=== PATIENT | male | born 1960 | race Caucasian/White ===

== ENCOUNTER 2024-02-27 07:59 | Day surgery (SDC) | payer BC ==
[2024-02-26 10:47] VITALS: BMI 22.8
[2024-02-27] MEDS ORDERED: Ondansetron PF 4 MG/2 ML Vial ONE (08:06)
[2024-02-27] MEDS ORDERED: Midazolam HCl 2 mg/2 ml Vial ONE (08:06)
[2024-02-27] MEDS ORDERED: Fentanyl 250 MCG/5 ML VIAL ONE (08:06)
[2024-02-27] MEDS ORDERED: PROPOFOL 40 ML ONE (08:06)
[2024-02-27] MEDS ORDERED: Dexamethasone 20 MG/5 ML VIAL ONE (08:06)
[2024-02-27] MEDS ORDERED: AFRIN NASAL MIST 15 ML BOT ONE (09:04)
[2024-02-27] MEDS ORDERED: Mupirocin 2% Ointment 22 GM Tube ONE (09:09)
[2024-02-27] MEDS ORDERED: Lidocaine 1% w/Epinephrine 1:200K 30 ML VIAL ONE (09:09)
[2024-02-27] MEDS ORDERED: Ferric Subsulfate 8 ML TOPICAL SOLN ONE (09:09)
[2024-02-27] MEDS ORDERED: methylPREDNISolone Acetate 40 mg/ml Vial ONE (09:42)
[2024-02-27] MEDS ORDERED: fentaNYL 50 mcg/mL 1 mL Vial ONE (10:47)
[2024-02-27] MEDS ORDERED: Hydrocodone-Acetamin 15 ML UDCUP ONE (11:24)
== END 2024-02-27 12:20 | disposition home or self-care (01) ==
LOC: CSHSDC 07:59
PROVIDERS: ATTEND Otolaryngology Plastic Surgery within the Head & Neck
PROC: 09TU8ZZ Resection of Right Ethmoid Sinus, Via Natural or Artificial Opening Endoscopic (ICD-10-PCS; principal; 2024-02-27)
PROC: 09TR8ZZ Resection of Left Maxillary Sinus, Via Natural or Artificial Opening Endoscopic (ICD-10-PCS; principal; 2024-02-27)
PROC: 0CTPXZZ Resection of Tonsils, External Approach (ICD-10-PCS; principal; 2024-02-27)
PROC: 09TQ8ZZ Resection of Right Maxillary Sinus, Via Natural or Artificial Opening Endoscopic (ICD-10-PCS; principal; 2024-02-27)
PROC: 09TV8ZZ Resection of Left Ethmoid Sinus, Via Natural or Artificial Opening Endoscopic (ICD-10-PCS; principal; 2024-02-27)
PROC: 09TL8ZZ Resection of Nasal Turbinate, Via Natural or Artificial Opening Endoscopic (ICD-10-PCS; principal; 2024-02-27)
DX: J34.2 Deviated nasal septum (principal); J34.3 Hypertrophy of nasal turbinates; J35.01 Chronic tonsillitis; J33.0 Polyp of nasal cavity; J32.8 Other chronic sinusitis; J33.9 Nasal polyp, unspecified; G47.33 Obstructive sleep apnea (adult) (pediatric); H91.93 Unspecified hearing loss, bilateral; Z98.890 Other specified postprocedural states; Z79.899 Other long term (current) drug therapy; Z88.0 Allergy status to penicillin
CPT/HCPCS: 88304; J1010; J1100; J2250; J2405; J2704; J3010